=== PATIENT | female | born 1950 | race American Indian/Alaskan Native ===

== ENCOUNTER 2016-10-26 11:43 | Emergency (ER) | payer MEDICARE ==
[2016-10-26 12:02] VITALS: TEMP 98.5; O2SAT 98; BMI 26.9
[2016-10-26 13:04] VITALS: BP 128/76; PULSE 73; RESP 18
--- NOTE | 2016-10-26 13:24 | ED PDOC ---
Arrival/HPI - General Chief Complaint: Lower Extremity Problem/Injury Time Seen by Provider: 10/26/16 12:24 Historian: Patient - History of Present Illness Narrative History of Present Illness (Text): 10/26/16 19:16 Patient reports injury to the right fourth toe 5 days ago and then reports injuring her right ankle the following day when she was [place]. Denies any numbness, decrease in range of motion, knee injury, reports no other complaints otherwise. Past Medical History - Provider Review Nursing Documentation Reviewed: Yes - Infectious Disease Hx of Infectious Diseases: None - Cardiac Hx Hypertension: Yes Other/Comment: HIP SURGERY R 2009 - Psychiatric Hx Substance Use: No - Anesthesia Hx Anesthesia: No Hx Anesthesia Reactions: No Hx Malignant Hyperthermia: No Family/Social History - Physician Review Nursing Documentation Reviewed: Yes Family/Social History: No Known Family HX Smoking Status: Never Smoked Hx Alcohol Use: No Hx Substance Use: No Allergies/Home Meds Allergies/Adverse Reactions: Allergies hydrocodone Allergy (Verified 11/19/15 18:40) RASH morphine Allergy (Verified 11/19/15 18:40) RASH Penicillins Allergy (Verified 11/19/15 18:40) RASH Home Medications: Home Meds Medication Instructions Recorded Confirmed Metoprolol Succinate [Toprol XL] 50 mg PO BID 11/19/15 10/26/16 Review of Systems - Review of Systems Constitutional: Normal. absent: Fatigue, Weight Change, Fevers Musculoskeletal: Normal. absent: Back Pain, Neck Pain Skin: Normal. absent: Rash, Skin Lesions Physical Exam - Physical Exam Narrative Physical Exam (Text): 10/26/16 19:18 GENERAL APPEARANCE: Patient is awake, alert, oriented x 3, in no acute distress. SKIN: Warm, dry; (-) cyanosis. R Ankle: (+) mild swelling, tenderness of the medial aspect of the ankle; (+) swelling and tenderness of the lateral ankle; (+) FROM. Achilles tendon intact and nontender. Knee: (-) injury. R Foot: (+) Tenderness, (+) swelling, (-) ecchymosis of the 4th toe. (-) crepitus, (-) deformity. Tendon function intact. (-) distal neurovascular deficit. (+) 2 point discrimination. Remainder of foot and digits: (-) injury. CARDIOVASCULAR: (+) distal pulse. NEUROLOGIC: (+) distal sensation. Vital Signs Temp Pulse Resp BP Pulse Ox 10/26/16 13:04 73 18 128/76 98 10/26/16 11:44 98.5 F 77 16 131/84 98 Medical Decision Making ED Course and Treatment: 10/26/16 13:21 65 yo F presents for injury to the R 4th toe and R ankle. Plan: -- XR R ankle / XR R foot -- Tylenol PO XR right ankle: no fracture, no dislocation, as read by PA XR right foot: no fracture, no dislocation, as read by PA Patient advised that official radiology read of XR is still pending and will call the patient if there is any discrepancy within 24 hours. X-ray results discussed with the patient in great detail. Alcon wrap applied to the right ankle, and toes taped by PA. Based on history, exam and diagnostic results plan will be for outpatient follow -up. Of note, patient is also requesting for a refill prescription of her metoprolol 50 mg twice a day which she ran out of a couple of days ago. However , denies any chest pain, dyspnea, shortness of breath, palpitations, headache, or dizziness. States that she feels well otherwise. Patient states she fully agrees with and understands discharge instructions. States that she agrees with the plan and disposition. Verbalized and repeated discharge instructions and plan. I have given the patient opportunity to ask any additional questions. Follow up with primary care physician in 1-2 days without fail. Advised to take [id number] Tylenol for pain. Return to the emergency room at any time for any new or worsening symptoms. - RAD Interpretation Radiology Orders: 10/26/16 12:25 ANKLE RIGHT 3 VIEWS ROUTINE [RAD] Stat FOOT RIGHT 3 VIEWS ROUTINE [RAD] Stat - Medication Orders Current Medication Orders: Discontinued Medications Acetaminophen (Tylenol 325mg Tab) 975 mg PO STAT STA Stop: 10/26/16 12:52 Last Admin: 10/26/16 13:09 Dose: 975 MG MAR Pain/Vitals Document 10/26/16 13:09 WANG (Rec: 10/26/16 13:09 WNAG [id number]) Pain Reassessment Is This A Pain ReAssessment? Yes Presence of Pain Presence of Pain Yes Location Left, Right or Bilateral Right Pain Location Body Site Ankle Intensity 9 Scale Used Numeric - PA / UNDERWRITING MANAGER / Resident Statement /DO has reviewed & agrees with the documentation as recorded. Disposition/Present on Arrival - Present on Arrival Any Indicators Present on Arrival: No History of DVT/PE: No History of Uncontrolled Diabetes: No Urinary Catheter: No History of Decub. Ulcer: No History Surgical Site Infection Following: None - Disposition Have Diagnosis and Disposition been Completed?: Yes Diagnosis: Ankle sprain, Toe contusion Disposition: HOME/ ROUTINE Disposition Time: 13:24 Patient Plan: Discharge Condition: GOOD Discharge Instructions (ExitCare): Ankle Sprain (ED), Foot Contusion (ED) Print Language: ROMANIAN Additional Instructions: Thank you for letting us take care of you today. You were treated for ankle sprain, toe contusion. The emergency medical care you received today was directed at your acute symptoms. It may take several days for your symptoms to resolve. Return to the Emergency Department if your symptoms worsen, do not improve, or if you have any other problems. Please contact your doctor in 2 days for re-evaluation and follow up. Bring any paperwork you were given at discharge with you along with any medications you are taking to your follow up visit. Our treatment cannot replace ongoing medical care by a primary care provider (PCP) outside of the emergency department. Thank you for allowing the [facility] team to be part of your care today. Prescriptions: Metoprolol Tartrate [Lopressor] 50 mg PO BID #20 tab Referrals: Shaun Ontiveros MD [Primary Care Provider] - Follow up with primary Forms: WORK NOTE
--- NOTE | 2016-10-26 16:00 | RAD ---
PROCEDURE: Right Foot Radiographs. HISTORY: pain - R 4th toe COMPARISON: None. FINDINGS: BONES: Normal. No fracture. JOINTS: Normal. SOFT TISSUES: Dorsal soft tissue swelling. OTHER FINDINGS: Plantar heel spur. IMPRESSION: No fracture.
--- NOTE | 2016-10-26 16:01 | RAD ---
PROCEDURE: Right Wrist Radiographs. HISTORY: pain COMPARISON: None. FINDINGS: BONES: Normal. No fracture. JOINTS: Normal. No dislocation. SOFT TISSUES: Circumferential soft tissue swelling. OTHER FINDINGS: None. IMPRESSION: No fracture.
== END 2016-10-26 13:35 | disposition home or self-care (01) ==
LOC: ED 11:43
DX: S93.401A Sprain of unspecified ligament of right ankle, initial encounter (principal); S90.121A Contusion of right lesser toe(s) without damage to nail, initial encounter; X58.XXXA Exposure to other specified factors, initial encounter

== ENCOUNTER 2018-09-22 10:53 | Emergency (ER) | payer MEDICARE ==
[2018-09-22 11:44] VITALS: BMI 25.0
[2018-09-22 11:50] VITALS: BP 122/77; PULSE 77; RESP 18; TEMP 97.8; O2SAT 98
--- NOTE | 2018-09-22 12:29 | ED PDOC ---
Arrival/HPI - General Chief Complaint: Finger,Hand,&Wrist Time Seen by Provider: 09/22/18 11:58 Past Medical History - Provider Review Nursing Documentation Reviewed: Yes - Infectious Disease Hx of Infectious Diseases: None - Cardiac Hx Hypertension: Yes Other/Comment: HIP SURGERY R 2010 - Psychiatric Hx Substance Use: No - Surgical History Other/Comment: R hip surgery - Anesthesia Hx Anesthesia: Yes Hx Anesthesia Reactions: No Hx Malignant Hyperthermia: No Family/Social History - Physician Review Nursing Documentation Reviewed: Yes Family/Social History: Unknown Family HX Smoking Status: Never Smoked Hx Alcohol Use: No Hx Substance Use: No Allergies/Home Meds Allergies/Adverse Reactions: Allergies hydrocodone Allergy (Verified 09/22/18 11:44) RASH morphine Allergy (Verified 09/22/18 11:44) RASH Penicillins Allergy (Verified 09/22/18 11:44) RASH rosuvastatin [From Crestor] Allergy (Verified 09/22/18 11:44) ITCHING Home Medications: Home Meds Medication Instructions Recorded Confirmed Metoprolol Succinate XL [Toprol XL] 50 mg PO BID 11/19/15 10/26/16 Review of Systems - Physician Review All systems were reviewed & negative as marked: Yes - Review of Systems Constitutional: Normal Eyes: Normal ENT: Normal Respiratory: Normal Cardiovascular: Normal Gastrointestinal: Normal Genitourinary Female: Normal Musculoskeletal: Normal Skin: Other (Right thumb pain) Neurological: Normal Endocrine: Normal Hemo/Lymphatic: Normal Psychiatric: Normal Physical Exam Vital Signs Reviewed: Yes Vital Signs Temp Pulse Resp BP Pulse Ox 09/22/18 11:49 97.8 F 77 18 122/77 98 Temperature: Afebrile Blood Pressure: Normal Pulse: Regular Respiratory Rate: Normal Appearance: Positive for: Well-Appearing, Non-Toxic, Comfortable Pain Distress: None Mental Status: Positive for: Alert and Oriented X 3 - Systems Exam Head: Present: Atraumatic, Normocephalic Pupils: Present: PERRL Extroacular Muscles: Present: EOMI Conjunctiva: Present: Normal Mouth: Present: Moist Mucous Membranes Neck: Present: Normal Range of Motion Respiratory/Chest: Present: Clear to Auscultation, Good Air Exchange. No: Respiratory Distress, Accessory Muscle Use Cardiovascular: Present: Regular Rate and Rhythm, Normal S1, S2. No: Murmurs Abdomen: No: Tenderness, Distention, Peritoneal Signs Back: Present: Normal Inspection Upper Extremity: Present: Normal Inspection. No: Cyanosis, Edema Lower Extremity: Present: Normal Inspection. No: Edema Neurological: Present: GCS=15, CN II-XII Intact, Speech Normal Skin: Present: Warm, Dry, Normal Color, Other (Tenderness over lateral edge of right thumb. No loculations. No sbecess. No erythema.). No: Rashes Psychiatric: Present: Alert, Oriented x 3, Normal Insight, Normal Concentration Disposition/Present on Arrival - Present on Arrival Any Indicators Present on Arrival: No History of DVT/PE: No History of Uncontrolled Diabetes: No Urinary Catheter: No History of Decub. Ulcer: No History Surgical Site Infection Following: None - Disposition Have Diagnosis and Disposition been Completed?: Yes Diagnosis: Infection of thumb Disposition: HOME/ ROUTINE Disposition Time: 12:35 Patient Plan: Discharge Condition: STABLE Discharge Instructions (ExitCare): Common Finger Injuries Additional Instructions: Follow up with your Doctor Return to ED for any new or worsening symptoms Prescriptions: Clindamycin [Cleocin] 300 mg PO TID #21 cap Ibuprofen [Motrin Tab] 600 mg PO Q6 #12 tab Referrals: Shaun Ontiveros MD [Primary Care Provider] - Follow up with primary
== END 2018-09-22 12:52 | disposition home or self-care (01) ==
LOC: ED 10:53
DX: L08.9 Local infection of the skin and subcutaneous tissue, unspecified (principal); I10 Essential (primary) hypertension

== ENCOUNTER 2018-10-23 22:08 | Emergency (ER) | payer MEDICARE ==
[2018-10-23 22:09] VITALS: BMI 25.0
[2018-10-23 22:28] VITALS: TEMP 97.5
--- NOTE | 2018-10-23 22:43 | ED PDOC ---
Arrival/HPI - General Chief Complaint: Lower Extremity Problem/Injury Time Seen by Provider: 10/23/18 22:35 Historian: Patient - History of Present Illness Narrative History of Present Illness (Text): 10/23/18 22:42 67 year old female, whose past medical history includes right hip arthroplasty and arthritis, who presents to the ED for right leg pain status post fall 6 days ago. Patient reports she was walking when she fell, hit her face and both her knees. Patient notes bilateral knee pain and right foot swelling since the fall. Patient rubbed Iodex on right foot, which did not improve the swelling. Patient denies any head injury, chest pain, shortness of breath, nausea, or vomiting. Time/Duration: < week Symptom Onset: Gradual Symptom Course: Unchanged Activities at Onset: Light Context: Walking Past Medical History - Provider Review Nursing Documentation Reviewed: Yes - Infectious Disease Hx of Infectious Diseases: None - Cardiac Hx Cardiac Disorders: Yes Hx Hypertension: Yes Other/Comment: HIP SURGERY R 2010 - Psychiatric Hx Substance Use: No - Surgical History Other/Comment: R hip surgery - Anesthesia Hx Anesthesia: Yes Hx Anesthesia Reactions: No Hx Malignant Hyperthermia: No Family/Social History - Physician Review Nursing Documentation Reviewed: Yes Family/Social History: Unknown Family HX Smoking Status: Never Smoked Hx Alcohol Use: No Hx Substance Use: No Allergies/Home Meds Allergies/Adverse Reactions: Allergies hydrocodone Allergy (Verified 10/23/18 22:28) RASH morphine Allergy (Verified 10/23/18 22:28) RASH Penicillins Allergy (Verified 10/23/18 22:28) RASH rosuvastatin [From Crestor] Allergy (Verified 10/23/18 22:28) ITCHING Home Medications: Home Meds Medication Instructions Recorded Confirmed Amlodipine/Valsartan [Exforge 1 tab PO DAILY 10/24/18 10/24/18 5-320 mg Tablet] Review of Systems - Physician Review All systems were reviewed & negative as marked: Yes - Review of Systems Respiratory: absent: SOB Cardiovascular: absent: Chest Pain Physical Exam - Physical Exam Narrative Physical Exam (Text): 10/23/18 22:51 Constitutional: No acute distress. Head: Normocephalic. Atraumatic. Eyes: PERRL. ENT: Moist mucous membranes. Neck: Supple. Cardiovascular: Regular rate. Chest: No tenderness. Respiratory: Clear to auscultation bilaterally. GI: Soft. Nontender. Nondistended. Back: No CVA tenderness. Musculoskeletal: Lateral malleolus tenderness. No fibular or tibial tenderness. DP Pulse 2+ Skin: No rash. Neurologic: Alert, no focal deficit. Vital Signs Reviewed: Yes Vital Signs Temp Pulse Resp BP Pulse Ox 10/23/18 22:28 97.5 F L 94 H 16 113/66 98 Temperature: Afebrile Blood Pressure: Normal Pulse: Regular Respiratory Rate: Normal Appearance: Positive for: Well-Appearing, Non-Toxic, Comfortable Mental Status: Positive for: Alert and Oriented X 3 Medical Decision Making ED Course and Treatment: 10/23/18 22:53 Impression: 67 year old female who presents to the ED for right leg pain status post fall. Plan: -- LE Ultrasound -- Right Leg X-Ray -- Reassess and disposition Prior Visits: Notes and results from previous visits were reviewed. Progress Notes: 10/23/18 23:42 Right ankle and foot x -ray no fracture or dislocation Right knee degenerate disease. No acute fracture. 10/24/18 01:14 LE Ultrasound Negative for DVT. SEDRICK wrap applied, f/u PMD, NSAIDs. - Scribe Statement The provider has reviewed the documentation as recorded by the Vince Franco training under Ivana Ken Provider Scribe Attestation: All medical record entries made by the Scribe were at my direction and personally dictated by me. I have reviewed the chart and agree that the record accurately reflects my personal performance of the history, physical exam, medical decision making, and the department course for this patient. I have also personally directed, reviewed, and agree with the discharge instructions and disposition. Disposition/Present on Arrival - Present on Arrival Any Indicators Present on Arrival: No History of DVT/PE: No History of Uncontrolled Diabetes: No Urinary Catheter: No History of Decub. Ulcer: No History Surgical Site Infection Following: None - Disposition Have Diagnosis and Disposition been Completed?: Yes Diagnosis: Leg injury Disposition: HOME/ ROUTINE Disposition Time: 22:50 Patient Plan: Discharge Condition: STABLE Discharge Instructions (ExitCare): Dependent Edema (DC) Forms: [employer] (Cym[employer])
[2018-10-24 01:30] VITALS: BP 115/86; PULSE 85; RESP 18; O2SAT 100
--- NOTE | 2018-10-24 11:05 | RAD ---
Date of service: 10/23/2018 PROCEDURE: Right Ankle Radiographs. HISTORY: fall, ankle pain COMPARISON: None available. TECHNIQUE: 3 views obtained. FINDINGS: BONES: Normal. No fracture. JOINTS: Normal. No osteoarthritis. Ankle mortise maintained. Talar dome intact SOFT TISSUES: Normal. OTHER FINDINGS: None. IMPRESSION: Normal right ankle radiographs.
--- NOTE | 2018-10-24 12:28 | RAD ---
Date of service: 10/23/2018 PROCEDURE: Right Knee Radiographs. HISTORY: fall, knee pain COMPARISON: 09/30/2012 TECHNIQUE: 2 views obtained. FINDINGS: BONES: Normal. No fracture. JOINTS: Severe degenerative changes are seen in all 3 compartments of the knee. There is bony sclerosis and irregularity of the joint surfaces as well as osteophyte formation. Findings are unchanged JOINT EFFUSION: None. OTHER FINDINGS: None. IMPRESSION: Severe osteoarthritis
--- NOTE | 2018-10-24 12:29 | RAD ---
Date of service: 10/23/2018 PROCEDURE: Right Foot Radiographs. HISTORY: fall, foot pain COMPARISON: 10/26/2016 TECHNIQUE: 3 views obtained. FINDINGS: BONES: Normal. No fracture. JOINTS: Normal. SOFT TISSUES: Normal. OTHER FINDINGS: None. IMPRESSION: Normal right foot radiographs.
--- NOTE | 2018-10-25 09:35 | US ---
PROCEDURE: Right lower extremity venous US HISTORY: Leg pain and swelling. Evaluate for DVT. PHYSICIAN(S): Georges Nunez M.D. TECHNIQUE: Duplex sonography and color-flow Doppler with graded compression were used to evaluate the deep venous system of the right lower extremity. FINDINGS: The visualized deep venous system of the right lower extremity is sonographically normal and compressible. Normal waveforms and augmentation are seen. There is no sonographic evidence for deep venous thrombosis in the visualized segments of the right lower extremity. IMPRESSION: 1. No sonographic evidence for deep venous thrombosis in the visualized segments of the right lower extremity.
== END 2018-10-24 01:18 | disposition home or self-care (01) ==
LOC: ED 22:08
DX: S89.91XA Unspecified injury of right lower leg, initial encounter (principal); W01.0XXA Fall on same level from slipping, tripping and stumbling without subsequent striking against object, initial encounter; I10 Essential (primary) hypertension; Z96.641 Presence of right artificial hip joint